=== PATIENT | female | born 1975 | race Caucasian/White ===

== ENCOUNTER → 2025-08-14 09:51 | Outpatient (CLI) | payer OTHER, SELFPAY ==
--- NOTE | 2025-08-14 10:00 | DI.RAD.S_ITS ---
PROCEDURE: XR HAND LT 2V INDICATIONS: Pain in joints of unspecified hand TECHNIQUE: Two views of the hand(s) acquired. COMPARISON: None. FINDINGS: Bones: No fractures or dislocations. No significant joint space loss or juxta- articular erosions. Carpal bones are normally aligned. No suspicious bony lesions. Soft tissues: No suspicious soft tissue calcifications. IMPRESSION: No acute bony abnormality. No radiographic evidence of significant arthritic change. Dictated by: Bouchra Howard M.D. on 08/14/2025 at 11:57 Approved by: Bouchra Howard M.D. on 08/14/2025 at 11:58
--- NOTE | 2025-08-14 10:00 | DI.RAD.S_ITS ---
PROCEDURE: XR HAND RT 2V INDICATIONS: Pain in joints of unspecified hand TECHNIQUE: Two views of the hand(s) acquired. COMPARISON: None. FINDINGS: Bones: No fractures or dislocations. Normal joint spaces. No erosive changes. Mild hypertrophic spurring at the 1st CMC joint. Carpal bones are normally aligned. No suspicious bony lesions. Soft tissues: No suspicious soft tissue calcifications. IMPRESSION: No acute abnormality. Changes at the 1st CMC joint suggesting early osteoarthritis. Dictated by: Bouchra Howard M.D. on 08/14/2025 at 11:59 Approved by: Bouchra Howard M.D. on 08/14/2025 at 12:00
== END ==
LOC: RAD 09:57
PROVIDERS: PCP Nurse Practitioner Family; Referring Provider Internal Medicine Cardiovascular Disease; Visit Provider Internal Medicine Cardiovascular Disease
DX: M25.549 Pain in joints of unspecified hand (principal)
CPT/HCPCS: 73120